=== PATIENT | male | born 1975 | race Caucasian/White ===

== ENCOUNTER 2018-03-07 14:45 | Emergency (ER) | payer OTHER ==
[~2018-03-07] VITALS: Ht 195.6 cm; Wt 97.7 kg
[2018-03-07 14:53] VITALS: BP 131/72
[2018-03-07] MEDS ORDERED: DIPH,PERTUSS(ACELL),TET VAC/PF 0.5 ML IM-VACC ONE ×2 (15:00→16:29)
[2018-03-07] MEDS ORDERED: PROPARACAINE OPHTH 0.5%, 15ML EACHEYE ONE (15:00)
[2018-03-07] MEDS ORDERED: FLUORESCEIN OPHTHALMIC 1 MG STRIP EACHEYE ONE (15:00)
== END 2018-03-07 17:19 | disposition home or self-care (01) ==
LOC: ED 17:16
DX: T15.02XA Foreign body in cornea, left eye, initial encounter (principal); X58.XXXA Exposure to other specified factors, initial encounter; Y93.89 Activity, other specified; Y92.89 Other specified places as the place of occurrence of the external cause; Y99.8 Other external cause status
CPT/HCPCS: 65222; 90471; 90715